=== PATIENT | female | born 1935 | race Caucasian/White ===

== ENCOUNTER 2024-08-27 21:09 | Emergency (ER) | payer MEDICARE, SELFPAY ==
[2024-08-27 21:12] VITALS: BP 162/72
[2024-08-28] MEDS: AUGMENTIN 875 MG/125 MG 1 TABLET PO (00:18)
[2024-08-28] MEDS: ADACEL 0.5 ML IM (00:18)
--- NOTE | 2024-08-28 00:45 | ED.SKININJ ---
HPI-Injury
General
Chief Complaint: Bite
Source: patient and family
Time Seen by Provider: 08/27/24 23:32
History of Present Illness-Injury
Initial Injury comments:
89-year-old female presents after she was bitten by her daughter's dog. The patient states she was bitten on the left hand. Patient is not sure when her last tetanus shot was. No other injuries. Daughter states that the dog is small and
immunizations up-to-date.
Past History
Past History
ED Past Medical History: HTN, Hypercholesterolemia and Other (Macular degeneration)
Phy Exam
Physical Exam
Physical Exam:
CONSTITUTIONAL Vital signs reviewed, Patient alert and oriented to person, place and time. Well-appearing
HEAD atraumatic, normocephalic.
EYES eyelids normal to inspection, Extraocular muscles intact, Conjunctiva normal, Sclera normal.
NECK normal range of motion, Trachea midline, no jugular venous distention.
RESP no respiratory distress
BACK No obvious deformities
UPPER EXTREMITY Gross Range of motion normal, gross motor strength normal. Left fifth digit with degloved/missing skin to the lateral and dorsal aspect of the digit. See image below
LOWER EXTREMITY Gross range of motion normal, Gross motor strength normal
NEURO Speech normal, No focal motor deficits include, [place] coma scale 15, Memory normal, Cranial Nerves intact to screening exam.
SKIN Skin warm, dry, and normal in color.
Course
Orders/Labs/Results
Orders:
Orders
08/28/24 00:07
Amoxicillin 875 mg/Clav 125 mg [Augmentin 875 mg/125 mg] 1 tablet PO NOW STA
Tetanus/Diphth/Acelpertussis [Adacel] 0.5 ml IM .ONCE ONE
Vital Signs
Initial and Last Documented VS:
Initial Vital Signs
Temp Pulse Resp BP Pulse Ox
98 F 77 16 162/72 98
08/27/24 21:12 08/27/24 21:12 08/27/24 21:12 08/27/24 21:12 08/27/24 21:12
Last Documented Vital Signs
Temp Pulse Resp BP Pulse Ox
98 F 77 16 162/72 98
08/27/24 21:12 08/27/24 21:12 08/27/24 21:12 08/27/24 21:12 08/27/24 21:12
MDM/Problems Addressed
MDM/Problems Addressed:
Degloved finger laceration
*Pulse Oximetry
Patient hypoxic: no
*Critical Care Note
Total Time (30-74mins, 75-104mins- exclusive of procedures): Not Applicable
Data Reviewed
Source: patient and family
Patient Management
Escalation/DeEscalation of care consider admission/obs:
Patient appears well. Unfortunately she does not have enough skin to pull together for primary intention. Case was discussed with orthopedics Dr. Reddy who will pass her information to hand surgery. For now we will apply sterile dressing and
cover with antibiotics. Leave dressing intact until seen by hand surgery
ED Attending Note
-
Portions of this chart may have been created with voice recognition software.� Occasional wrong word or��sound alike� substitutions may have occurred due to the inherent limitations of voice recognition software.
Discharge Plan
Departure
Patient Disposition: Home (Routine Discharge)
Date of Disposition: 08/28/24
Time of Disposition: 00:57
Patient with high blood pressure during this ER visit?: Yes
Discharge Problem:
Dog bite, Finger laceration, Degloving injury
Instructions: Animal Bites (DC), Wound Care (DC)
Prescriptions:
New
amoxicillin-pot clavulanate 875-125 mg tablet
1 tab PO BID Qty: 14 0RF
Referrals:
Jered Lr MD [Active] -
Lorena Stahl MD [Family Provider] -
Activity Restrictions/Additional Instructions:
Please see hand surgery on Friday for follow-up and reevaluation and further treatment of your wound. Return immediately for fevers, redness, worsening pain or any other concerns. Please leave your dressing intact until seen by orthopedics
Interventions
Interventions:
*Risk Screen - Suicide Last Done: 08/27/24 21:12
*Neglect/Abuse Screening Last Done: 08/27/24 21:12
ED-Skin Assessment Last Done: 08/27/24 23:57
Discharge Date and Time
Print Language: PASHTO
== END 2024-08-28 01:27 | disposition home or self-care (01) ==
LOC: EMR 21:09
PROVIDERS: EMERGENCY PHYSICIAN Emergency Medicine; FAMILY PHYSICIAN Internal Medicine
DX: S61.207A Unspecified open wound of left little finger without damage to nail, initial encounter (principal); W54.0XXA Bitten by dog, initial encounter; I10 Essential (primary) hypertension; Z23 Encounter for immunization
CPT/HCPCS: 99282; 90471; 90715